=== PATIENT | male | born 1985 | race Caucasian/White ===

== ENCOUNTER → 2018-07-26 | Outpatient (CLI) | payer OTHER ==
--- NOTE | 2018-07-26 16:29 | RADIOLOGY REPORT (SQ) ---
EXAM DESCRIPTION: HAND RIGHT 3 VIEWS COMPLETED DATE/TIME: 07/26/2018 11:45 am REASON FOR STUDY: PAIN IN RIGHT HAND M79.641 PAIN IN RIGHT HAND M25.562 PAIN IN LEFT KNEE COMPARISON: None. EXAM PARAMETERS: NUMBER OF VIEWS: Three views. TECHNIQUE: AP, lateral and oblique radiographic images acquired of the right hand. LIMITATIONS: None. FINDINGS: MINERALIZATION: Normal. BONES: No acute fracture or dislocation. No worrisome bone lesions. JOINTS: No effusions. SOFT TISSUES: No soft tissue swelling. No foreign body. OTHER: No other significant finding. IMPRESSION: NEGATIVE STUDY OF THE RIGHT HAND. NO RADIOGRAPHIC EVIDENCE OF ACUTE INJURY. TECHNICAL DOCUMENTATION: JOB ID: [id number] [employer]- All Rights Reserved Reading location - IP/workstation name: [email or web address]
--- NOTE | 2018-07-26 16:30 | RADIOLOGY REPORT (SQ) ---
EXAM DESCRIPTION: KNEE LEFT 2 VIEWS COMPLETED DATE/TIME: 07/26/2018 11:45 am REASON FOR STUDY: PAIN IN LT KNEE M79.641 PAIN IN RIGHT HAND M25.562 PAIN IN LEFT KNEE COMPARISON: None. NUMBER OF VIEWS: Two views. TECHNIQUE: AP and lateral radiographic images acquired of the left knee. LIMITATIONS: None. FINDINGS: MINERALIZATION: Normal. BONES: No acute fracture or dislocation. No worrisome bone lesions. JOINT: No effusion. SOFT TISSUES: No soft tissue swelling. No radio-opaque foreign body. OTHER: No other significant finding. IMPRESSION: NEGATIVE STUDY OF THE LEFT KNEE. NO RADIOGRAPHIC EVIDENCE OF ACUTE INJURY. TECHNICAL DOCUMENTATION: JOB ID: [id number] [employer]- All Rights Reserved Reading location - IP/workstation name: [email or web address]
== END ==
LOC: OD 11:08
PROVIDERS: ATTEND Physician Assistant
DX: M79.641 Pain in right hand (principal); M25.562 Pain in left knee

== ENCOUNTER → 2018-08-31 | Outpatient (CLI) | payer OTHER ==
--- NOTE | 2018-08-31 10:40 | RADIOLOGY REPORT (SQ) ---
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 TECHNIQUE: CT scan of the chest performed using helical scanning technique with dynamic intravenous contrast injection. Images reviewed with lung, soft tissue and bone windows. Reconstructed coronal and sagittal MPR and MIP images reviewed. All images stored on PACS. All CT scanners at this facility use dose modulation, iterative reconstruction, and/or weight based d osing when appropriate to reduce radiation dose to as low as reasonably achievable (ALARA). [facility]: Dose Right [facility]: CareDose [facility]: Dose Right [facility]: Teradose 4D [facility]: [email or web address] CONTRAST TYPE AND DOSE: See separate report of the same date. RENAL FUNCTION: None required. The patient is less than 50 years old. RADIATION DOSE: . LIMITATIONS: None. FINDINGS: LUNGS AND PLEURA: No opacities, nodules, masses. No pneumothorax. No effusions. HILAR AND MEDIASTINAL STRUCTURES: No identified masses or abnormal nodes. HEART AND VASCULAR STRUCTURES: No aneurysm or dissection. No central pulmonary emboli. No pericardi al effusion. HARDWARE: None in the chest. UPPER ABDOMEN: See separate report of the CT of the abdomen. THYROID AND OTHER SOFT TISSUES: No masses. No adenopathy. BONES: No significant finding. OTHER: No other significant finding. IMPRESSION: No evidence of metastatic disease. TECHNICAL DOCUMENTATION: JOB ID: [id number] Quality ID # [id number]: Final reports with documentation of one or more dose reduction techniques (e.g., Au tomated exposure control, adjustment of the mA and/or kV according to patient size, use of iterative reconstruction technique) 2010 [employer]- All Rights Reserved Reading location - IP/workstation name: [email or web address]
--- NOTE | 2018-08-31 10:45 | RADIOLOGY REPORT (SQ) ---
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 TECHNIQUE: CT scan of the abdomen and pelvis performed using helical scanning technique with dynamic intravenous contrast injection. No oral contrast. Images reviewed with lung, soft tissue, and bone windows. Reconstructed coronal and sagittal MPR images reviewed. Delayed images for evaluation of the urinary system also acquired. All images stored on PACS. All CT scanners at this facility use dose modulation, iterative reconstruction, and/or weight based d osing when appropriate to reduce radiation dose to as low as reasonably achievable (ALARA). [facility]: Dose Right [facility]: CareDose [facility]: Dose Right [facility]: Teradose 4D [facility]: [employer] CONTRAST TYPE AND DOSE: contrast/concentration: Isovue 350.00 mg/ml; Total Contrast Delivered: 96.0 ml; Total Saline Delivered: 71.0 ml RENAL FUNCTION: None required. The patient is less than 50 years old. RADIATION DOSE: CT Rad equipment meets quality standard of care and radiation dose reduction techniq ues were employed. CTDIvol: 7.2 - 7.6 mGy. DLP: 1072 mGy-cm.. LIMITATIONS: None. FINDINGS: LOWER CHEST: See separate report of the CT of the chest. LIVER: Normal size. No masses. No dilated ducts. SPLEEN: Normal size. No focal lesions. PANCREAS: No masses. No significant calcifications. No adjacent inflammation or peripancreatic fluid collections. Pancreatic duct not dilated. GALLBLADDER: No identified stones by CT criteria. No inflammatory changes to suggest cholecystitis. ADRENAL GLANDS: No significant masses or asymmetry. RIGHT KIDNEY AND URETER: No solid masses. No significant calcifications. No hydronephrosis or hyd roureter. LEFT KIDNEY AND URETER: No solid masses. No significant calcifications. No hydronephrosis or hydr oureter. AORTA AND VESSELS: No aneurysm. No dissection. Renal arteries, SMA, celiac without stenosis. RETROPERITONEUM: No retroperitoneal adenopathy, hemorrhage or masses. BOWEL AND PERITONEAL CAVITY: No masses or inflammatory changes. No free fluid or peritoneal masses. APPENDIX: Normal. PELVIS: No mass. No free fluid. Normal bladder. ABDOMINAL WALL: No masses. No hernias. BONES: No significant or acute findings. OTHER: No other significant finding. IMPRESSION: No evidence of metastatic disease. TECHNICAL DOCUMENTATION: JOB ID: [id number] Quality ID # [id number]: Final reports with documentation of one or more dose reduction techniques (e.g., Au tomated exposure control, adjustment of the mA and/or kV according to patient size, use of iterative reconstruction technique) 2010 [employer]- All Rights Reserved Reading location - IP/workstation name: [email or web address]
== END ==
LOC: RAD 08:02
PROVIDERS: ATTEND Internal Medicine
DX: C62.11 Malignant neoplasm of descended right testis (principal)
CPT/HCPCS: 71260; 74177

== ENCOUNTER → 2019-09-18 | Outpatient (CLI) | payer OTHER ==
[2019-09-18 14:29] LABS: HEMOGLOBIN 15.7 g/dL (13.5-17.0); MEAN CORPUSCULAR HEMOGLOBIN 30.6 pg (27.0-33.4); MEAN CORPUSCULAR HGB CONC 35.7 g/dL (32.0-36.0); MEAN CORPUSCULAR VOLUME 86 fl (80-97); PLATELET COUNT 157 10^3/uL (150-450); RED BLOOD COUNT 5.13 10^6/uL (4.35-5.55); RED CELL DISTRIBUTION WIDTH 12.8 % (11.5-14.0); WHITE BLOOD COUNT 7.3 10^3/uL (4.0-10.5)
[2019-09-18 14:52] LABS: ALBUMIN 4.2 g/dL (3.5-5.0); ALKALINE PHOSPHATASE 109 U/L (38-126); ANION GAP 8 (5-19); ASPARTATE AMINO TRANSFERASE 68 U/L (17-59); BILIRUBIN,DIRECT 0.7 mg/dL (0.0-0.4); BILIRUBIN,TOTAL 5.9 mg/dL (0.2-1.3); BLOOD UREA NITROGEN 13 mg/dL (7-20); CALCIUM 8.8 mg/dL (8.4-10.2); CARBON DIOXIDE 27 mmol/L (22-30); CHLORIDE 98 mmol/L (98-107); GLUCOSE 97 mg/dL (75-110); POTASSIUM 3.8 mmol/L (3.6-5.0); TOTAL PROTEIN 7.1 g/dL (6.3-8.2)
[2019-09-18 14:56] LABS: ABSOLUTE LYMPHOCYTES# (MANUAL) 2.6 10^3/uL (0.5-4.7); ABSOLUTE MONOCYTES # (MANUAL) 0.4 10^3/uL (0.1-1.4); BASOPHILS % (MANUAL) 0 % (0-2); EOSINOPHILS % (MANUAL) 0 % (0-6); LYMPHOCYTES % (MANUAL) 21 % (13-45); MONOCYTES % (MANUAL) 6 % (3-13); SEGMENTED NEUTROPHILS % (MAN) 58 % (42-78); TOTAL CELLS COUNTED 100
[2019-09-18 14:57] LABS: PLATELET COMMENT ADEQUATE; POLYCHROMASIA SLIGHT
[2019-09-19 13:53] LABS: PATH REVIEW PATHOLOGIST REVIEWED
== END ==
LOC: OD 13:56
PROVIDERS: ATTEND Physician Assistant
DX: I31.9 Disease of pericardium, unspecified (principal)
CPT/HCPCS: 36415; 80053; 85025

== ENCOUNTER → 2019-09-20 | Outpatient (CLI) | payer OTHER ==
[2019-09-20 11:03] LABS: ALBUMIN 3.8 g/dL (3.5-5.0); ALKALINE PHOSPHATASE 118 U/L (38-126); ANION GAP 8 (5-19); ASPARTATE AMINO TRANSFERASE 74 U/L (17-59); BILIRUBIN,DIRECT 0.5 mg/dL (0.0-0.4); BILIRUBIN,TOTAL 4.2 mg/dL (0.2-1.3); BLOOD UREA NITROGEN 12 mg/dL (7-20); CALCIUM 8.2 mg/dL (8.4-10.2); CARBON DIOXIDE 27 mmol/L (22-30); CHLORIDE 96 mmol/L (98-107); GLUCOSE 93 mg/dL (75-110); POTASSIUM 3.8 mmol/L (3.6-5.0); TOTAL PROTEIN 6.7 g/dL (6.3-8.2)
== END ==
LOC: OD 10:08
PROVIDERS: ATTEND Family Medicine
DX: R17 Unspecified jaundice (principal)
CPT/HCPCS: 36415; 80053

== ENCOUNTER → 2019-09-21 | Outpatient (CLI) | payer OTHER ==
--- NOTE | 2019-09-21 11:43 | RADIOLOGY REPORT (SQ) ---
EXAM DESCRIPTION: U/S ABDOMEN LIMITED W/O DOP IMAGES COMPLETED DATE/TIME: 09/21/2019 8:42 am REASON FOR STUDY: ELEVATED BILIRUBIN/ABN LIVER ENZYMES R17 UNSPECIFIED JAUNDICE R74.8 ABNORMAL LEV ELS OF OTHER SERUM ENZYMES COMPARISON: 10/31/2018 TECHNIQUE: Dynamic and static grayscale images acquired of the abdomen and recorded on PACS. Additio nal selected color Doppler and spectral images recorded. LIMITATIONS: None. FINDINGS: PANCREAS: No masses. Visualized pancreatic duct normal caliber. LIVER: Fatty infiltration. No focal mass. No intrahepatic biliary dilatation. LIVER VASCULATURE: Normal directional flow of the main portal vein and hepatic veins. GALLBLADDER: No stones. Normal wall thickness. No pericholecystic fluid. Incidental note is made of sludge. ULTRASOUND-DETECTED ZHAO'S SIGN: Not documented. INTRAHEPATIC DUCTS AND COMMON DUCT: CBD and intrahepatic ducts normal caliber. No filling defects. INFERIOR VENA CAVA: Normal flow. AORTA: No aneurysm. RIGHT KIDNEY: Normal size. Normal echogenicity. No solid or suspicious masses. No hydronephrosis. No calcifications. PERITONEAL AND RIGHT PLEURAL SPACE: No ascites or effusions. OTHER: No other significant findings. IMPRESSION: Hepatic steatosis and biliary sludge. Otherwise normal sonographic appearance of the ri ght upper quadrant. TECHNICAL DOCUMENTATION: JOB ID: [id number] 2010 [employer]- All Rights Reserved Reading location - IP/workstation name: [email or web address]
== END ==
LOC: RAD 07:25
PROVIDERS: ATTEND Physician Assistant
DX: K76.0 Fatty (change of) liver, not elsewhere classified (principal); R74.8 Abnormal levels of other serum enzymes
CPT/HCPCS: 76705

== ENCOUNTER → 2019-10-05 | Outpatient (CLI) | payer OTHER ==
[2019-10-05 18:11] LABS: ALKALINE PHOSPHATASE 89 U/L (38-126); ANION GAP 6 (5-19); ASPARTATE AMINO TRANSFERASE 97 U/L (17-59); BILIRUBIN,DIRECT 0.3 mg/dL (0.0-0.4); BILIRUBIN,TOTAL 2.9 mg/dL (0.2-1.3); BLOOD UREA NITROGEN 10 mg/dL (7-20); CALCIUM 9.2 mg/dL (8.4-10.2); CARBON DIOXIDE 27 mmol/L (22-30); CHLORIDE 103 mmol/L (98-107); GLUCOSE 96 mg/dL (75-110); POTASSIUM 4.4 mmol/L (3.6-5.0); TOTAL PROTEIN 7.2 g/dL (6.3-8.2)
== END ==
LOC: OD 09:33
PROVIDERS: ATTEND Physician Assistant
DX: R17 Unspecified jaundice (principal)
CPT/HCPCS: 36415; 80053

== ENCOUNTER → 2019-11-08 | Outpatient (CLI) | payer OTHER ==
[2019-11-08 10:46] LABS: ABSOLUTE EOSINOPHILS # (AUTO) 0.1 10^3/uL (0.0-0.6); ABSOLUTE LYMPHOCYTES (AUTO) 2.8 10^3/uL (0.5-4.7); ABSOLUTE MONOCYTES (AUTO) 0.6 10^3/uL (0.1-1.4); ABSOLUTE NEUT (AUTO) 2.6 10^3/uL (1.7-8.2); BASOPHILS % (AUTO) 0.8 % (0-2); EOSINOPHILS % (AUTO) 1.9 % (0-6); HEMATOCRIT 46.6 % (37.9-51.0); HEMOGLOBIN 16.3 g/dL (13.5-17.0); LYMPHOCYTES % (AUTO) 45.7 % (13-45); MEAN CORPUSCULAR HEMOGLOBIN 30.6 pg (27.0-33.4); MEAN CORPUSCULAR HGB CONC 35.1 g/dL (32.0-36.0); MEAN CORPUSCULAR VOLUME 87 fl (80-97); MONOCYTES % (AUTO) 9.2 % (3-13); PLATELET COUNT 223 10^3/uL (150-450); RED BLOOD COUNT 5.33 10^6/uL (4.35-5.55); RED CELL DISTRIBUTION WIDTH 13.8 % (11.5-14.0); SEGMENTED NEUTROPHILS % (AUTO) 42.4 % (42-78); TOTAL CELLS COUNTED % (AUTO) 100 %; WHITE BLOOD COUNT 6.2 10^3/uL (4.0-10.5)
[2019-11-08 11:08] LABS: ALBUMIN 4.5 g/dL (3.5-5.0); ALKALINE PHOSPHATASE 56 U/L (38-126); ASPARTATE AMINO TRANSFERASE 26 U/L (17-59); BILIRUBIN,TOTAL 2.3 mg/dL (0.2-1.3); TOTAL PROTEIN 7.6 g/dL (6.3-8.2)
== END ==
LOC: OD 09:47
PROVIDERS: ATTEND Physician Assistant
DX: K81.9 Cholecystitis, unspecified (principal)
CPT/HCPCS: 36415; 80076; 85025

== ENCOUNTER 2020-01-01 00:06 | Observation (INO) | payer OTHER ==
[2020-01-01] MEDS ORDERED: ONDANSETRON 4 MG TAB.RAPDIS PO ONE (01:15)
--- NOTE | 2020-01-01 01:18 | ER Document Report ---
ED Medical Screen (RME) - General Chief Complaint: Abdominal Pain Stated Complaint: ABDOMINAL PAIN Primary Care Provider: ANNY DURON PA-C [Primary Care Provider] - Follow up as needed Notes: Patient is a 34-year-old white male with a past medical history of testicular cancer status post orchiectomy, myocarditis and gallbladder sludge who presents to the emergency department today with a chief complaint of right upper quadrant abdominal pain that began earlier today. States the pain radiates to the bilateral upper quadrants into the back and upward fashion towards her shoulder blades. States is associated with nausea and vomiting. Had this in the past and elected not to have it removed due to poor timing. Denies any fevers or jaundice or scleral icterus. I have treated and performed a rapid initial assessment of this patient. A comprehensive ED assessment and evaluation of the patient, analysis of test results and completion of medical decision making process will be conducted by additional ED providers. PHYSICAL EXAMINATION: GENERAL: Well-appearing, well-nourished and in no acute distress. A&Ox4. Answers questions appropriately. TRAVEL OUTSIDE OF THE [place] IN LAST 30 DAYS: No - Related Data Allergies/Adverse Reactions: No Known Allergies Allergy (Verified 11/03/19 07:32) Past Medical History Neurological Medical History: Reports: Hx Migraine Past Surgical History: Reports: Hx Abdominal Surgery, Hx Testicular Surgery Physical Exam - Vital signs Vitals: Temp Pulse Resp BP Pulse Ox 97.9 F 68 14 133/97 H 98 01/01/20 00:18 01/01/20 00:18 01/01/20 00:18 01/01/20 00:18 01/01/20 00:18 Course - Vital Signs Vital signs: Temp Pulse Resp BP Pulse Ox 97.9 F 68 14 133/97 H 98 01/01/20 00:18 01/01/20 00:18 01/01/20 00:18 01/01/20 00:18 01/01/20 00:18 Doctor's Discharge - Discharge Referrals: ANNY DURON PA-C [Primary Care Provider] - Follow up as needed
[2020-01-01 01:47] LABS: ABSOLUTE BASOPHILS # (AUTO) 0.1 10^3/uL (0.0-0.2); ABSOLUTE EOSINOPHILS # (AUTO) 0.4 10^3/uL (0.0-0.6); ABSOLUTE LYMPHOCYTES (AUTO) 3.2 10^3/uL (0.5-4.7); ABSOLUTE MONOCYTES (AUTO) 0.9 10^3/uL (0.1-1.4); ABSOLUTE NEUT (AUTO) 4.3 10^3/uL (1.7-8.2); EOSINOPHILS % (AUTO) 4.9 % (0-6); HEMATOCRIT 45.4 % (37.9-51.0); HEMOGLOBIN 16.4 g/dL (13.5-17.0); LYMPHOCYTES % (AUTO) 35.7 % (13-45); MEAN CORPUSCULAR HEMOGLOBIN 30.9 pg (27.0-33.4); MEAN CORPUSCULAR VOLUME 86 fl (80-97); MONOCYTES % (AUTO) 9.7 % (3-13); PLATELET COUNT 212 10^3/uL (150-450); RED BLOOD COUNT 5.29 10^6/uL (4.35-5.55); RED CELL DISTRIBUTION WIDTH 13.6 % (11.5-14.0); SEGMENTED NEUTROPHILS % (AUTO) 48.7 % (42-78); TOTAL CELLS COUNTED % (AUTO) 100 %; WHITE BLOOD COUNT 8.9 10^3/uL (4.0-10.5)
[2020-01-01 02:10] LABS: ALBUMIN 4.5 g/dL (3.5-5.0); ALKALINE PHOSPHATASE 63 U/L (38-126); ANION GAP 10 (5-19); ASPARTATE AMINO TRANSFERASE 26 U/L (17-59); BILIRUBIN,DIRECT 0.3 mg/dL (0.0-0.4); BILIRUBIN,TOTAL 1.4 mg/dL (0.2-1.3); BLOOD UREA NITROGEN 16 mg/dL (7-20); CALCIUM 9.6 mg/dL (8.4-10.2); CARBON DIOXIDE 26 mmol/L (22-30); CHLORIDE 102 mmol/L (98-107); GLUCOSE 97 mg/dL (75-110); POTASSIUM 4.4 mmol/L (3.6-5.0); TOTAL PROTEIN 7.2 g/dL (6.3-8.2)
--- NOTE | 2020-01-01 02:17 | RADIOLOGY REPORT (SQ) ---
Ultrasound right upper quadrant on 01/01/2020 at 1:45 AM CLINICAL INDICATION: Right upper quadrant pain COMPARISON: Ultrasound from 11/03/[address] from 08/31/2018 FINDINGS: Multiple sonographic images are obtained throughout the right upper quadrant, both transverse and sagittal images are obtained. Visualized pancreas is unremarkable. There is likely mild fatty infiltration of the liver with some focal fatty sparing in the liver adjacent to the gallbladder. No focal liver lesion is noted. Small amount of sludge is noted in the gallbladder. The visualized hepatic vasculature is patent and with a normal directional flow. The common duct measures 4 mm which is within normal limits mitigating against obstruction of the biliary tree. No gallstones, gallbladder wall thickening or pericholecystic fluid is noted. Technologist noted a positive sonographic Rodriguez sign and please correlate with physical exam. Right kidney shows no hydronephrosis. IMPRESSION: 1. Small amount of sludge in the gallbladder. Technologist noted a positive sonographic Rodriguez sign. If there is high clinical concern for early acalculous cholecystitis consider follow-up hepatobiliary scan. 2. Mild fatty infiltration of the liver.
[2020-01-01 02:35] LABS: APPEARANCE,URINE CLEAR; BILIRUBIN,URINE NEGATIVE (NEGATIVE); COLOR,URINE STRAW; GLUCOSE, URINE NEGATIVE (NEGATIVE); KETONES,URINE NEGATIVE (NEGATIVE); PROTEIN,URINE NEGATIVE (NEGATIVE); URINE SPECIFIC GRAVITY 1.008; UROBILINOGEN,URINE NEGATIVE mg/dL (<2.0)
[2020-01-01] MEDS ORDERED: NORMAL SALINE 1000 ML 1,000 ML IV ONE (05:00)
[2020-01-01] MEDS ORDERED: MORPHINE SULFATE 10 MG/ML INJ IV ONE (05:00)
[2020-01-01] MEDS ORDERED: ONDANSETRON HCL INJ/PF 4 MG/2 ML SDV IV ONE (05:00)
--- NOTE | 2020-01-01 05:02 | ER Document Report ---
ED GI/ - General Chief Complaint: Abdominal Pain Stated Complaint: ABDOMINAL PAIN Time Seen by Provider: 01/01/20 04:52 Primary Care Provider: ANNY DURON PA-C [Primary Care Provider] - Follow up as needed Notes: Patient is a 34-year-old male that comes emergency department for chief complaint of severe right upper quadrant pain and 3 episodes of vomiting. Patient states that he did eat a small amount of chili tonight and shortly after this he started having severe pain and nausea. He denies fever/chills. Patient states that he was told he had gallbladder sludge, he states he followed up with Dr. Harrison, he states that Dr. Harrison told him that he needs to have his gallbladder taken out. He was trying to get scheduled for a HIDA scan outpatient but he states he has not managed to get to cover this yet. Patient has a past medical history of testicular cancer status post orchiectomy, inguinal hernia repair, denies medical history otherwise. Denies smoking or recreational drugs, drinks alcohol rarely. TRAVEL OUTSIDE OF THE [place] IN LAST 30 DAYS: No - Related Data Allergies/Adverse Reactions: No Known Allergies Allergy (Verified 11/03/19 07:32) Past Medical History - General Information source: Patient - Social History Smoking Status: Never Smoker Frequency of alcohol use: Social Drug Abuse: None Lives with: Family Family History: Reviewed & Not Pertinent Neurological Medical History: Reports: Hx Migraine Malignancy Medical History: Reports Hx Testicular Cancer Past Surgical History: Reports: Hx Inguinal Hernia, Hx Testicular Surgery - Immunizations Immunizations up to date: Yes Hx Diphtheria, Pertussis, Tetanus Vaccination: Yes Review of Systems - Review of Systems Constitutional: No symptoms reported EENT: No symptoms reported Cardiovascular: No symptoms reported Respiratory: No symptoms reported Gastrointestinal: See HPI Genitourinary: No symptoms reported Male Genitourinary: No symptoms reported Musculoskeletal: No symptoms reported Skin: No symptoms reported Hematologic/Lymphatic: No symptoms reported Neurological/Psychological: No symptoms reported Physical Exam - Vital signs Vitals: Temp Pulse Resp BP Pulse Ox 97.9 F 68 14 133/97 H 98 01/01/20 00:18 01/01/20 00:18 01/01/20 00:18 01/01/20 00:18 01/01/20 00:18 - Notes Notes: GENERAL: Alert, interacts well. No acute distress. HEAD: Normocephalic, atraumatic. EYES: Pupils equal, round, and reactive to light. Extraocular movements intact. ENT: Oral mucosa moist, tongue midline. Oropharynx unremarkable. Airway patent. NECK: Full range of motion. Supple. Trachea midline. No lymphadenopathy. LUNGS: Clear to auscultation bilaterally, no wheezes, rales, or rhonchi. No respiratory distress. Non-tender chest wall. HEART: Regular rate and rhythm. No murmur ABDOMEN: Tenderness with wincing in the epigastric and right upper quadrant areas. Left upper quadrant and mid to lower abdomen are benign and unremarkable. Otherwise unremarkable. Bowel sounds present throughout. EXTREMITIES: Moves all 4 extremities spontaneously. No edema, normal radial and dorsalis pedis pulses bilaterally. No cyanosis. BACK: no cervical, thoracic, lumbar midline tenderness. No saddle anesthesia, normal distal neurovascular exam. Moves all extremities in full range of motion. NEUROLOGICAL: Alert and oriented x3. Normal speech. Cranial nerves II through XII grossly intact. Strength 5/5 in all extremities. PSYCH: Normal affect, normal mood. SKIN: Warm, dry, normal turgor. No rashes or lesions noted. Course - Re-evaluation Re-evalutation: Patient has tenderness in the epigastric and right upper quadrant areas. Patient has had multiple episodes of vomiting tonight after eating chili. Ultrasound report showing sludge in the gallbladder and positive sonographic Rodriguez sign but no pericholecystic fluid or concerning findings otherwise. CBC, chemistry, lipase, urinalysis unremarkable. Patient was medicated for pain and after this he did significantly improved. He has been n.p.o. since 6 PM last night. Patient is stating he is hoping he can be evaluated by surgeon this time because of his repeat symptoms and recommendations by gastroenterology. Will discuss with general surgery on-call. 01/01/20 I called and spoke with Dr. Mosher, general surgery, he states he will come evaluate the patient. 01/01/20 07:38 Patient accepted to surgical floor pending surgery most likely later today. Patient states appreciation and agreement. - Vital Signs Vital signs: Temp Pulse Resp BP Pulse Ox 98.3 F 66 19 127/81 H 99 01/01/20 03:15 01/01/20 03:15 01/01/20 07:01 01/01/20 07:01 01/01/20 07:01 - Laboratory Result Diagrams: 01/01/20 01:17 01/01/20 01:17 Laboratory results interpreted by me: 01/01/20 01:17 Creatinine 1.30 H Total Bilirubin 1.4 H Discharge - Discharge Clinical Impression: RUQ pain, Sludge in gallbladder Vomiting Qualifiers: Vomiting type: unspecified Vomiting Intractability: non-intractable Nausea presence: with nausea Qualified Code(s): R11.2 - Nausea with vomiting, unspecified Condition: Stable Disposition: ADMITTED OBSERVATION Admitting Provider: Surgicalist Unit Admitted: Surgical Floor Referrals: ANNY DURON PA-C [Primary Care Provider] - Follow up as needed
[2020-01-01] MEDS ORDERED: KETOROLAC TROMETHAMINE INJ/PF 30 MG/1 ML SDV IV PRN (06:44)
[2020-01-01] MEDS ORDERED: ONDANSETRON HCL INJ/PF 4 MG/2 ML SDV IV PRN (06:44)
[2020-01-01] MEDS ORDERED: RINGERS SOLUTION,LACTATED 1,000 ML IV PRN (06:44)
[2020-01-01] MEDS ORDERED: CEFAZOLIN 1 GM/D5W RTU 1 GM/50 ML RTUPB IV ONE (06:44)
[2020-01-01] MEDS ORDERED: FAMOTIDINE INJ/PF 20 MG/2 ML SDV IV ONE (06:52)
--- NOTE | 2020-01-01 07:03 | PDOC H&P ---
History of Present Illness Admission Date/PCP: ANNY DURON PA-C Patient complains of: Abdominal pain History of Present Illness: AUGUSTINE EVANS is a 34 year old male Who presents emergency department via ground rescue for approximately the first time in several months complaining of abdominal pain, anorexia, nausea, radiation to the back. Patient has been evaluated by gallbladder ultrasonography, and found to have gallstones. Patient has been seen by Zander Harrison underground production foreperson who recommended cholecystectomy according to patient. Patient followed up with multiple physicians at [facility], where additional studies were performed, but surgery was not. Is back to emergency department with the above complaints, slightly elevated total bilirubin. Last ate at 6 PM yesterday. Last bowel movement yesterday, normal. He was consulted, patient advised admission and definitive intervention, laparoscopic cholecystectomy. Past Medical History Past Medical History: Reticulosis, migraine headaches, history of testicular cancer history of myocarditis August,, [facility], work-up including EKG, stress test, cardiac MRI at [facility] all negative according to ellen ly's history. 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, 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; strong family history of testicular cancer Family History Family History: Reviewed & Not Pertinent, Other - Multiple generations of testicular cancer Parental Family History Reviewed: Yes Children Family History Reviewed: Yes Sibling(s) Family History Reviewed.: Yes Medication/Allergy Allergies/Adverse Reactions: No Known Allergies Allergy (Verified 11/03/19 07:32) Review of Systems Constitutional: PRESENT: as per HPI Eyes: ABSENT: visual disturbances Ears: ABSENT: hearing changes Cardiovascular: ABSENT: chest pain, dyspnea on exertion, edema, orthropnea, palpitations Respiratory: ABSENT: cough, hemoptysis Gastrointestinal: PRESENT: as per HPI Genitourinary: PRESENT: as per HPI Musculoskeletal: PRESENT: other - Right lower extremity anterior thigh neuropathy Neurological: PRESENT: other - Neuropathy Psychiatric: ABSENT: anxiety, depression, homidical ideation, suicidal ideation Endocrine: ABSENT: cold intolerance, heat intolerance, polydipsia, polyuria Physical Exam Vital Signs: Temp Pulse Resp BP Pulse Ox 98.3 F 66 20 120/86 H 100 01/01/20 03:15 01/01/20 03:15 01/01/20 03:15 01/01/20 03:15 01/01/20 03:15 Intake & Output 12/30/19 12/31/19 01/01/20 06:59 06:59 06:59 Intake Total 1000 Balance 1000 Weight 90.1 kg General appearance: PRESENT: no acute distress Head exam: PRESENT: normocephalic Eye exam: PRESENT: EOMI Neck exam: PRESENT: full ROM Respiratory exam: PRESENT: clear to auscultation eve[place] Cardiovascular exam: PRESENT: RRR Pulses: PRESENT: normal carotid pulses, normal radial pulses, normal femoral pulses, normal dorsalis pedis pul GI/Abdominal exam: PRESENT: soft - Soft, tender right upper quadrant with guarding to moderate pain, other - No apparent hernias appreciated Rectal exam: PRESENT: deferred Extremities exam: PRESENT: full ROM Musculoskeletal exam: PRESENT: ambulatory Neurological exam: PRESENT: oriented to person, oriented to place, oriented to time, oriented to situation Psychiatric exam: PRESENT: appropriate affect Skin exam: PRESENT: dry Results Laboratory Results: 01/01/20 01:17 01/01/20 01:17 01/01/20 01/01/20 01/01/20 01:17 01:17 01:17 WBC 8.9 RBC 5.29 Hgb 16.4 Hct 45.4 MCV 86 MCH 30.9 MCHC 36.0 RDW 13.6 Plt Count 212 Seg Neutrophils % 48.7 Sodium 138.4 Potassium 4.4 Chloride 102 Carbon Dioxide 26 Anion Gap 10 BUN 16 Creatinine 1.30 H Est GFR ( Amer) > 60 Glucose 97 Calcium 9.6 Total Bilirubin 1.4 H AST 26 Alkaline Phosphatase 63 Total Protein 7.2 Albumin 4.5 Lipase 196.0 Urine Color STRAW Urine Appearance CLEAR Urine pH 7.0 Ur Specific [place] 1.008 Urine Protein NEGATIVE Urine Glucose (UA) NEGATIVE Urine Ketones NEGATIVE Urine Blood NEGATIVE Urine RBC (Auto) 0 Impressions: Abdomen Ultrasound 01/01/20 01:15 IMPRESSION: 1. Small amount of sludge in the gallbladder. Technologist noted a positive sonographic Rodriguez sign. If there is high clinical concern for early acalculous cholecystitis consider follow-up hepatobiliary scan. 2. Mild fatty infiltration of the liver. Assessment & Plan - Diagnosis (1) Symptomatic cholelithiasis Is this a current diagnosis for this admission?: Yes Plan: Impression: Recurrent, symptomatic cholelithiasis with cholecystitis, slightly e levated total bilirubin; clinical history consistent with known gallbladder disease, with possible passage of gallstone. No evidence of sepsis, peritonitis. Recommendations: 1. I recommended patient be admitted, kept n.p.o., IV fluids, have rapid COVID test and undergo laparoscopic, possible open cholecystectomy with intraoperative cholangiography. 2. We will check an EKG, and communicate with the anesthesiologist patient's reported history of myocarditis in August 2019. 3. I explained the patient Dr. Figueredo, surgical is, will be providing care for the patient today. (2) History of gastroesophageal reflux (GERD) Is this a current diagnosis for this admission?: Yes (3) History of testicular cancer Is this a current diagnosis for this admission?: Yes (4) History of myocarditis Is this a current diagnosis for this admission?: Yes (5) Elevated LFTs Is this a current diagnosis for this admission?: Yes (6) History of seasonal allergies Is this a current diagnosis for this admission?: Yes - Time Time Spent: 30 to 50 Minutes Critical Time spent with patient: Less than 15 minutes Medications reviewed and adjusted accordingly: Yes Anticipated Discharge Disposition: Home, Self Care Anticipated Discharge Timeframe: within 48 hours
[2020-01-01] MEDS ORDERED: FENTANYL CITRATE INJ/PF 250 MCG/5 ML AMPULE ONE (09:19)
[2020-01-01] MEDS ORDERED: PROPOFOL INJ 200 MG/20 ML VIAL IV ONE (09:20)
[2020-01-01] MEDS ORDERED: HYDROMORPHONE HCL INJ/PF 2 MG/ML AMPULE ONE (09:20)
[2020-01-01] MEDS ORDERED: MIDAZOLAM 2 MG/2 ML INJ ONE (09:20)
[2020-01-01] MEDS ORDERED: CEFOXITIN INJ 2 GM VIAL ONE (09:28)
[2020-01-01] MEDS ORDERED: BUPIVACAINE HCL 0.25 % INJ/PF (2.5 MG/1 ML) 30 ML VIAL ONE (09:29)
[2020-01-01] MEDS ORDERED: FENTANYL CITRATE INJ/PF 100 MCG/2 ML AMPUL IV PRN ×3 (10:11)
[2020-01-01] MEDS ORDERED: DIPHENHYDRAMINE HCL 50 MG/ML VIAL IV PRN (10:11)
[2020-01-01] MEDS ORDERED: PROMETHAZINE HCL INJ 25 MG/1 ML VIAL IV PRN (10:11)
[2020-01-01] MEDS ORDERED: MEPERIDINE HCL/PF INJ 25 MG/1 ML DISP.SYRIN IV PRN (10:11)
[2020-01-01] MEDS ORDERED: MORPHINE SULFATE 10 MG/ML INJ IV PRN (10:11)
--- NOTE | 2020-01-01 11:02 | Operative Report ---
Nonrecallable Operative Report DATE OF SURGERY: 01/01/20 PREOPERATIVE DIAGNOSIS: Acute cholecystitis POSTOPERATIVE DIAGNOSIS: Same as above OPERATION: Laparoscopic cholecystectomy SURGEON: HAILEE CHE ANESTHESIA: GA TISSUE REMOVED OR ALTERED: Gallbladder COMPLICATIONS: None apparent ESTIMATED BLOOD LOSS: Minimal PROCEDURE: Drains/implants: None. Procedure in detail: After informed consent was obtained, the patient was brought into the operating room and laid in the supine position. The area of the abdomen was prepped and draped in a normal sterile fashion. A supraumbilical incision was created with a 15 blade scalpel. Dissection was carried through the subcutaneous tissues using sharp and blunt dissection. The cicatrix, grasped with a Milad clamp, and retracted upwards. The linea alba fascia was incised sharply, the abdomen was entered sharply. The balloon trocar was inserted, and pneumoperitoneum was achieved. A subxiphoid 5 mm port was placed under direct laparoscopic visualization. 2 more 5 mm ports were placed in the right upper quadrant in similar fashion. Atraumatic graspers were placed through the 5 mm ports. The gallbladder was retracted cephalad and laterally. Dissection was begun in the triangle of [place]. The cystic duct and cystic artery were fully visualized and skele tonized, seeing the liver through the triangle. Once the critical view of safety was obtained, the cystic duct and cystic artery were clipped and cut with laparoscopic instruments. The gallbladder was then removed from the liver using Bovie electrocautery. Once the gallbladder was freed, it was placed into an Endo Catch bag, and pulled out through the umbilicus. The camera was reinserted. The hilum was inspected. It was found to be free of any leakage of blood or bile. Once this was confirmed, the 5 mm trochars were removed. The supraumbilical trocar was also removed. Pneumoperitoneum was relieved. The supraumbilical fascia was closed using 0 Vicryl suture in [id number] fashion. The overlying skin was closed using 4-0 Vicryl Rapide suture in subcuticular fashion. Dressings were placed, and the procedure was concluded. All sponge, instrument, and needle counts were correct x2. Condition: Stable.
[2020-01-01] MEDS ORDERED: DEXAMETHASONE SOD PHOSPHATE INJ 4 MG/1 ML VIAL ONE (14:21)
[2020-01-01] MEDS ORDERED: GLYCOPYRROLATE 1 MG/5 ML VIAL ONE (14:21)
[2020-01-01] MEDS ORDERED: NEOSTIGMINE METHYLSULFATE 10 MG/10 ML VIAL ONE (14:21)
[2020-01-01] MEDS ORDERED: ONDANSETRON HCL INJ/PF 4 MG/2 ML SDV ONE (14:21)
[2020-01-01] MEDS ORDERED: ROCURONIUM BROMIDE INJ 50 MG/5 ML VIAL IV ONE (14:21)
[2020-01-01] MEDS: HYDROCODONE/ACETAMINOPHEN 10-325 MG TABLET PO PRN ×2 (14:44→19:41)
--- NOTE | 2020-01-02 06:13 | PDOC DISCHARGE SUMMARY ---
General - Admit/Disc Date/PCP Admission Date/Primary Care Provider: 01/01/20 07:57 ANNY DURON PA-C Discharge Date: 01/02/20 - Discharge Diagnosis Final Diagnosis: Acute cholecystitis - Assessment Summary: 34-year-old male admitted to the hospital with right upper quadrant pain and evidence of acute cholecystitis on exam. The patient was taken to the operating room, where laparoscopic cholecystectomy was successfully performed. Patient was taken to the floor in stable condition. He began ambulating and tolerating a diet. By 01/02/2020 it was felt that the patient had reached maximal hospital benefit, and is fit for discharge. - Additional Information Resuscitation Status: Full Code Discharge Diet: As Tolerated Discharge Activity: No Lifting Over 10 Pounds, No Lifting/Push/Pulling Referrals: ANNY DURON PA-C [Primary Care Provider] - Follow up as needed Prescriptions: Hydrocodone/Acetaminophen [[place] 10-325 mg Tablet] 1 tab PO Q6HP PRN #14 tablet PRN Reason: For Pain Home Medications: Bupropion HCl [Wellbutrin 100 mg Tablet] 300 mg PO DAILY 01/01/20 Celecoxib [Celebrex 200 mg Capsule] 200 mg PO DAILY 01/01/20 Levocetirizine Dihydrochloride [Xyzal] 5 mg PO DAILY 01/01/20 Pantoprazole Sodium [Protonix [address] Tablet] 40 mg PO Q6AM 01/01/20 Hydrocodone/Acetaminophen [[place] 10-325 mg Tablet] 1 tab PO Q6HP PRN #14 tablet 01/02/20 History of Present Illiness History of Present Illness: AUGUSTINE EVANS is a 34 year old male Physical Exam Vital Signs: Temp Pulse Resp BP Pulse Ox 98.1 F 66 16 111/53 L 98 01/01/20 19:55 01/01/20 19:55 01/01/20 19:55 01/01/20 19:55 01/01/20 19:55 Intake & Output 12/31/19 01/01/20 01/02/20 06:59 06:59 06:59 Intake Total 1000 2582 Output Total 10 Balance 1000 2572 Weight 90.1 kg 196.8 kg Results Laboratory Results: WBC 8.9 10^3/uL (4.0-10.5) 01/01/20 01:17 RBC 5.29 10^6/uL (4.35-5.55) 01/01/20 01:17 Hgb 16.4 g/dL (13.5-17.0) 01/01/20 01:17 Hct 45.4 % (37.9-51.0) 01/01/20 01:17 MCV 86 fl (80-97) 01/01/20 01:17 MCH 30.9 pg (27.0-33.4) 01/01/20 01:17 MCHC 36.0 g/dL (32.0-36.0) 01/01/20 01:17 RDW 13.6 % (11.5-14.0) 01/01/20 01:17 Plt Count 212 10^3/uL (150-450) 01/01/20 01:17 Lymph % (Auto) 35.7 % (13-45) 01/01/20 01:17 [place] % (Auto) 9.7 % (3-13) 01/01/20 01:17 Eos % (Auto) 4.9 % (0-6) 01/01/20 01:17 Baso % (Auto) 1.0 % (0-2) 01/01/20 01:17 Absolute Neuts (auto) 4.3 10^3/uL (1.7-8.2) 01/01/20 01:17 Absolute Lymphs (auto) 3.2 10^3/uL (0.5-4.7) 01/01/20 01:17 Absolute Monos (auto) 0.9 10^3/uL (0.1-1.4) 01/01/20 01:17 Absolute Eos (auto) 0.4 10^3/uL (0.0-0.6) 01/01/20 01:17 Absolute Basos (auto) 0.1 10^3/uL (0.0-0.2) 01/01/20 01:17 Seg Neutrophils % 48.7 % (42-78) 01/01/20 01:17 Sodium 138.4 mmol/L (137-145) 01/01/20 01:17 Potassium 4.4 mmol/L (3.6-5.0) 01/01/20 01:17 Chloride 102 mmol/L (98-107) 01/01/20 01:17 Carbon Dioxide 26 mmol/L (22-30) 01/01/20 01:17 Anion Gap 10 (5-19) 01/01/20 01:17 BUN 16 mg/dL (7-20) 01/01/20 01:17 Creatinine 1.30 mg/dL (0.52-1.25) H 01/01/20 01:17 Est GFR ( Amer) > 60 (>60) 01/01/20 01:17 Est GFR (MDRD) Non-Af > 60 (>60) 01/01/20 01:17 Glucose 97 mg/dL (75-110) 01/01/20 01:17 Calcium 9.6 mg/dL (8.4-10.2) 01/01/20 01:17 Total Bilirubin 1.4 mg/dL (0.2-1.3) H 01/01/20 01:17 Direct Bilirubin 0.3 mg/dL (0.0-0.4) 01/01/20 01:17 Neonat Total Bilirubin Not Reportable 01/01/20 01:17 Neonat Direct Bilirubin Not Reportable 01/01/20 01:17 Neonat Indirect Bili Not Reportable 01/01/20 01:17 AST 26 U/L (17-59) 01/01/20 01:17 ALT 23 U/L (<50) 01/01/20 01:17 Alkaline Phosphatase 63 U/L (38-126) 01/01/20 01:17 Total Protein 7.2 g/dL (6.3-8.2) 01/01/20 01:17 Albumin 4.5 g/dL (3.5-5.0) 01/01/20 01:17 Lipase 196.0 U/L (23-300) 01/01/20 01:17 Urine Color STRAW 01/01/20 01:17 Urine Appearance CLEAR 01/01/20 01:17 Urine pH 7.0 (5.0-9.0) 01/01/20 01:17 Ur Specific [place] 1.008 01/01/20 01:17 Urine Protein NEGATIVE mg/dL (NEGATIVE) 01/01/20 01:17 Urine Glucose (UA) NEGATIVE mg/dL (NEGATIVE) 01/01/20 01:17 Urine Ketones NEGATIVE mg/dL (NEGATIVE) 01/01/20 01:17 Urine Blood NEGATIVE (NEGATIVE) 01/01/20 01:17 Urine Nitrite (Reflex) NEGATIVE (NEGATIVE) 01/01/20 01:17 Urine Bilirubin NEGATIVE (NEGATIVE) 01/01/20 01:17 Urine Urobilinogen NEGATIVE mg/dL (<2.0) 01/01/20 01:17 Leukocyte Esterase Rfl NEGATIVE (NEGATIVE) 01/01/20 01:17 Urine RBC (Auto) 0 /HPF 01/01/20 01:17 Urine WBC (Reflex) < 1 /HPF 01/01/20 01:17 Squamous Epi Cells Auto <1 /HPF 01/01/20 01:17 Urine Mucus (Auto) RARE /LPF 01/01/20 01:17 Urine Ascorbic Acid NEGATIVE (NEGATIVE) 01/01/20 01:17 SARS-CoV-2 (PCR) NEGATIVE (NEGATIVE) 01/01/20 07:07 Impressions: Abdomen Ultrasound 01/01/20 01:15 IMPRESSION: 1. Small amount of sludge in the gallbladder. Technologist noted a positive sonographic Rodriguez sign. If there is high clinical concern for early acalculous cholecystitis consider follow-up hepatobiliary scan. 2. Mild fatty infiltration of the liver.
[2020-01-02 08:30] VITALS: BP 118/65
== END 2020-01-02 08:50 | disposition home or self-care (01) ==
LOC: ER 00:06 → EH 07:57 → 4W 12:57
PROC: 0FT44ZZ Resection of Gallbladder, Percutaneous Endoscopic Approach (ICD-10-PCS; principal; 2020-01-01 09:45)
DX: K80.00 Calculus of gallbladder with acute cholecystitis without obstruction (principal); K21.9 Gastro-esophageal reflux disease without esophagitis; R79.89 Other specified abnormal findings of blood chemistry; R10.11 Right upper quadrant pain; R11.2 Nausea with vomiting, unspecified; R63.0 Anorexia; M54.9 Dorsalgia, unspecified; Z80.43 Family history of malignant neoplasm of testis; Z86.79 Personal history of other diseases of the circulatory system
CPT/HCPCS: 99285; 96361; 96375; 96365; 36415; 83690; 85025; 87635; 80053; 81001; 88304 ×2; 76705; 00790; 47562; G0378 ×3; J2250; J0690; J3490 ×2; J1100; S0119; J3010; J1885; J2270; J2710; J1170; J2405; J7030; J7120; J2704; S0028; J0694; C9803; 790